=== PATIENT | male | born 1970 | race Caucasian/White ===

== ENCOUNTER 2024-02-02 15:08 | Emergency (ER) | payer OTHER, SELFPAY ==
[2024-02-02 15:28] VITALS: BP 185/100
--- NOTE | 2024-02-02 18:32 | ED.GENMED ---
History of Present Illness
<ZULEYMA Long - Last Filed: 02/02/24 20:48>
General
Chief Complaint: Skin Problem
Source: patient
Exam Limitations: none
Time Seen by Provider: 02/02/24 18:04
Travel History
Have you had any contact with someone who has COVID-19?: No
Do you have any symptoms of coronavirus? Fever > 100 degrees, chills, cough, shortness of breath, sore throat, loss of taste or smell, muscle aches, or headache?: No
History of Present Illness
History of Present Illness:
This is a 53 year old male that comes in with c/o lump on the posterior neck. States that a few weeks ago it started as a small little bump. States that now it is as big as his fist. States that he went to today in [place] and he told him to go
to the surgery center in [place] on Friday. States that he was place on Augmentin. States that he has been a little nauseated, has a headache and lightheaded. Denies any fever, chills, chest pain, SOB, abd pain, vomiting, diarrhea, urinary
burning
Past History
<ZULEYMA Long - Last Filed: 02/02/24 20:48>
Past History
ED Past Medical History: HTN and Hypercholesterolemia
ED Past Surgical History: Orthopedic (Disc fusion neck)
Social History
Tobacco: Non-smoker
Alcohol: Occasional
Personal:
Living: alone
Review of Systems
<ZULEYMA Long - Last Filed: 02/02/24 20:48>
Review of Systems
All Other Systems: ROS reviewed and negative except as documented in HPI and ROS
Constitutional: Reports no symptoms; Denies fever or chills
EENT: Reports no symptoms
Respiratory: Reports no symptoms; Denies cough or trouble breathing
Cardiac: Reports no symptoms; Denies chest pain
ABD/GI: Reports nausea; Denies abdominal pain, vomiting or diarrhea
: Reports no symptoms; Denies dysuria, frequency or urgency
Musculoskeletal: Reports no symptoms
Skin: Reports other (Right neck lump)
Neurological: Reports headache and other (Lightheaded)
Psychiatric: Reports no symptoms
Phy Exam
<ZULEYMA Long - Last Filed: 02/02/24 20:48>
General Physical Exam
General Presentation: well appearing and no apparent distress
General age: appears stated age
General Skin: warm and dry
General Habitus: normal
General Mental: alert
General Hydration: appears well hydrated
ENT Exam
ENT Exam: TM's normal, pharynx normal and neck supple
Eye Exam
Eye Exam: EOMI
Cardiovascular Exam
Cardiovascular Exam: regular rate/rhythm and no murmur
Pulmonary Exam
Pulmonary Exam: lungs clear, no respiratory distress, no rales, chest non tender, no crackles, no rhonchi, no wheezing and no cough
Musculoskeletal Exam
Musculoskeletal Exam: full ROM
Skin Exam
Skin Exam: normal color, warm/dry, no rash, no petechia and other (right posterior neck mass, hard but pliable. Tender to palpation, Negative for any redness)
Psychiatric Exam
Psychiatric Exam: normal mood/affect
Course
<ZULEYMA Long - Last Filed: 02/02/24 20:48>
Orders/Labs/Results
Orders:
Orders
02/02/24 18:31
CT Neck With Iv Contrast Urgent
Reason For Exam: right posterior neck mass
02/02/24 18:43
Complete Blood Count/With Diff Urgent
Comprehensive Metabolic Panel Urgent
Abnormal Lab Results
02/02/24
18:43
RBC 4.62 L 10^6/uL
(4.70-6.10)
Hct 38.2 L %
(39.0-52.0)
Absolute Monos (auto) 0.9 H 10^3/uL
(0.1-0.6)
Monocytes % 11.2 H %
(1.7-9.3)
02/02/24 18:43
02/02/24 18:43
Vital Signs
Initial and Last Documented VS:
Initial Vital Signs
Temp Pulse Resp BP Pulse Ox
98.9 F 68 16 185/100 92
02/02/24 15:28 02/02/24 15:28 02/02/24 15:28 02/02/24 15:28 02/02/24 15:28
Last Documented Vital Signs
Temp Pulse Resp BP Pulse Ox
98.9 F 68 16 185/100 92
02/02/24 15:28 02/02/24 15:28 02/02/24 15:28 02/02/24 15:28 02/02/24 15:28
<Urban Mireles, DO - Last Filed: 02/02/24 20:49>
Orders/Labs/Results
Orders:
Orders
02/02/24 18:31
CT Neck With Iv Contrast Urgent
Reason For Exam: right posterior neck mass
02/02/24 18:43
Complete Blood Count/With Diff Urgent
Comprehensive Metabolic Panel Urgent
Abnormal Lab Results
02/02/24
18:43
RBC 4.62 L 10^6/uL
(4.70-6.10)
Hct 38.2 L %
(39.0-52.0)
Absolute Monos (auto) 0.9 H 10^3/uL
(0.1-0.6)
Monocytes % 11.2 H %
(1.7-9.3)
02/02/24 18:43
02/02/24 18:43
Vital Signs
Initial and Last Documented VS:
Initial Vital Signs
Temp Pulse Resp BP Pulse Ox
98.9 F 68 16 185/100 92
02/02/24 15:28 02/02/24 15:28 02/02/24 15:28 02/02/24 15:28 02/02/24 15:28
Last Documented Vital Signs
Temp Pulse Resp BP Pulse Ox
98.9 F 68 16 185/100 92
02/02/24 15:28 02/02/24 15:28 02/02/24 15:28 02/02/24 15:28 02/02/24 15:28
Procedures
<Urban Mireles DO - Last Filed: 02/02/24 20:49>
Incision/Drainage/Joint Aspiration
Right Posterior Neck:
Anethesia: 1% Lidocaine with Epi
Preparation: cleaned with alcohol wipe
Type of procedure: incise and drain
Nature of site: cyst
Description of abscess: less than 3cm
Treatment: left open for drainage
Additional information:
I personally performed an incision and drainage as there was a fluctuant mass. However there was no drainage returned. This was performed under sterile technique.
<ZULEYMA Long - Last Filed: 02/02/24 20:48>
MDM/Problems Addressed
Differential Diagnosis Includes:
Lipoma, abscess
MDM/Problems Addressed:
This is a 53 year old male that comes in with c/o lump on the posterior neck. States that this started out a few weeks ago with a small bump but has grown.
Will check labs and get CT of Neck.
Back into see patient. Reviewed CT findings. Patient will be seen by Dr. Mireles and he attempted to drain area but there was no fluid. Will have patient use the antibiotics that he was given. Follow up with the family doctor. Return with
any concerns.
Chronic conditions affecting care:
NA
Acute Exacerbation and/or Progression of Chronic Illness:
NA
<ZULEYMA Long - Last Filed: 02/02/24 20:48>
*Radiology
Radiology exam reviewed: radiology read reviewed (CT neck-Right Occipital subcutaneous inflammatory fat stranding and ovoid soft tissue attenuation focus that measures 1.3 1.1cm. Nonspecific imaging appearance but differential considerations would
include an inflamed lymph node or small complex cyst )
*Pulse Oximetry
Patient hypoxic: no
*EKG
Interpreted by ED Provider?: NA
Rate: EKG- N/A
*Employee Benefits Director Interpretation
Rate: Employee Benefits Director- N/A
*Critical Care Note
Total Time (30-74mins, 75-104mins- exclusive of procedures): Not Applicable
ED Attending Note
<ZULEYMA Long - Last Filed: 02/02/24 20:48>
-
Portions of this chart may have been created with voice recognition software.� Occasional wrong word or��sound alike� substitutions may have occurred due to the inherent limitations of voice recognition software.
<Urban Mireles DO - Last Filed: 02/02/24 20:49>
ED Attending Note
Patient seen and examined by attending physician: Yes
I performed the substantive portion of visit, reviewed & personally made and approve the management plan that is documented in note by myself or NEVILLE.: Yes
I performed a history and physical exam of patient and discussed management with resident, I reviewed resident's note and agree with documented findings and plan of care.: Yes
ED Attending Note:
I evaluated patient at bedside. Bedside I&D was attempted but no drainage was obtained.
Discharge Plan
Departure
Patient Disposition: Home (Routine Discharge)
Date of Disposition: 04/22/24
Time of Disposition: 20:44
Patient with high blood pressure during this ER visit?: Yes
Condition: Good
Covid-19: Not Applicable
Discharge Problem:
Neck pain on right side
Instructions: Wound Care (DC), BLOOD PRESSURE
Referrals:
Dione Gamboa, DO [Family Provider] - Follow up in 2-3 days
Activity Restrictions/Additional Instructions:
As discussed, your blood work is all normal. Your CT shows that this could be a Inflamed Lymph node or a cyst. It was attempted to drain but there was no fluid. Please use the antibiotic that you have been given as directed. Follow up with the
family doctor for recheck in the next 2-3 days. IF YOU HAVE ANY REDNESS, FEVER, OR YOU HAVE ANY OTHER CONCERNS PLEASE RETURN TO THE EMERGENCY ROOM.
Interventions
Interventions:
*Risk Screen - Suicide Last Done: 02/02/24 15:27
*General Assessment Last Done: 02/02/24 15:27
*Neglect/Abuse Screening Last Done: 02/02/24 15:27
ED-Skin Assessment Last Done: 02/02/24 18:42
Discharge Date and Time
Print Language: BELARUSIAN
[2024-02-02 19:10] LABS: % Basophils 0.8 % (0-2); % Eosinophils 3.4 % (0-6); % Immature Granulocytes 0.3 % (0-0.5); % Lymphocytes 31.1 % (20.5-51.1); % Monocytes 11.2 % (1.7-9.3); % Neutrophils 53.2 % (42.2-75.2); Absolute Basophils 0.1 10^3/uL (0-0.2); Absolute Eosinophils 0.3 10^3/uL (0-0.7); Absolute Lymphocytes 2.4 10^3/uL (1.2-3.4); Absolute Monocytes 0.9 10^3/uL (0.1-0.6); Absolute Neutrophils 4.1 10^3/uL (1.4-6.5); Hematocrit 38.2 % (39.0-52.0); Hemoglobin 13.8 g/dL (13.0-18.0); Mean Corp Hgb Conc. 36.1 g/dL (33.0-37.0); Mean Corpuscular Hgb 29.9 pg (27.0-31.0); Mean Corpuscular Volume 82.7 fL (80.0-94.0); Nucleated Red Blood Cells % 0 % (-); Platelet Count 267 10^3/uL (130-400); Red Blood Cell Count 4.62 10^6/uL (4.70-6.10); Red Cell Dist. Width 12.2 % (11.5-14.5); White Blood Cell Count 7.7 10^3/uL (4.8-10.8)
[2024-02-02 19:40] LABS: ALT (SGPT) 27 U/L (0-50); AST (SGOT) 21 U/L (17-59); Albumin 4.4 g/dl (3.5-5.0); Alkaline Phosphatase 63 U/L (38-126); Blood Urea Nitrogen 16 mg/dl (9-20); Calcium 9.6 mg/dl (8.4-10.2); Carbon Dioxide 24 mmol/L (22-30); Chloride 107 mmol/L (98-107); Glucose 84 mg/dl (70-99); Potassium 4.3 mmol/L (3.5-5.1); Sodium 137 mmol/L (135-145); Total Bilirubin 1.1 mg/dl (0.2-1.3); Total Protein 7.1 g/dl (6.3-8.2); eGFR > 60.00
== END 2024-02-02 22:31 | disposition home or self-care (01) ==
LOC: EMR 15:08
PROVIDERS: Clinical Nurse Specialist Family Health; EMERGENCY PHYSICIAN Emergency Medicine; FAMILY PHYSICIAN Family Medicine
DX: M54.2 Cervicalgia (principal); I10 Essential (primary) hypertension; E78.00 Pure hypercholesterolemia, unspecified
CPT/HCPCS: 99284; 70491; 80053; 85025; Q9967